=== PATIENT | female | born 1955 | race Hispanic/Latino ===

== ENCOUNTER 2021-11-12 19:31 | Emergency (ER) | payer OTHER ==
--- NOTE | 2021-11-12 21:27 | RAD REPORT ---
EXAM DESCRIPTION: CT - [id number] - 11/12/2021 9:16 pm CLINICAL HISTORY: Trauma, head and neck injury. fall, hit back of head and neck pain COMPARISON: No comparisons TECHNIQUE: Axial 5 mm thick images of the head were obtained. Axial 2 mm thick images of the cervical spine were obtained with sagittal and coronal reconstruction images generated and reviewed. All CT scans are performed using dose optimization technique as appropriate and may include automated exposure control or mA/KV adjustment according to patient size. FINDINGS: CT HEAD WITHOUT CONTRAST: No acute hemorrhage, hydrocephalus or extra-axial collection is identified.No areas of brain edema or midline shift. The paranasal sinuses and mastoids are clear.The calvarium is intact. CT CERVICAL SPINE WITHOUT CONTRAST: No fracture or subluxation.Mild lower cervical degenerative spondylosis.No prevertebral soft tissues swelling is identified. IMPRESSION: No acute intracranial or cervical spine findings.
--- NOTE | 2021-11-12 21:35 | ER ---
Nurse's Notes [facility] Name: Geena Islas Age: 66 yrs Sex: Female : 1955 Arrival Date: 11/12/2021 Time: 19:37 Bed 9 Private MD: Diagnosis: Unspecified injury of head, initial encounter Presentation: 11/12 19:57 Chief complaint: Patient states: I fell in the bathtub today - I hit the back of my ld1 head on the bathtub. Denies LOC. Not on blood thinners. "I want to make sure everything is okay, I am not in pain.". Coronavirus screen: At this time, the client does not indicate any symptoms associated with coronavirus-19. Ebola Screen: No symptoms or risks identified at this time. Initial Sepsis Screen: Does the patient meet any 2 criteria? No. Patient's initial sepsis screen is negative. Does the patient have a suspected source of infection? No. Patient's initial sepsis screen is negative. Risk Assessment: Do you want to hurt yourself or someone else? Patient reports no desire to harm self or others. Onset of symptoms was November 12, 2021 at 20:00. 19:57 Method Of Arrival: Ambulatory ld1 19:57 Acuity: ALPESH 3 ld1 Triage Assessment: 19:57 General: Appears in no apparent distress. comfortable, Behavior is calm, cooperative, ld1 appropriate for age. Pain: Denies pain. EENT: No signs and/or symptoms were reported regarding the EENT system. Neuro: Level of Consciousness is awake, alert, obeys commands, Oriented to person, place, time, situation. Cardiovascular: Capillary refill < 3 seconds Patient's skin is warm and dry. Respiratory: Airway is patent Respiratory effort is even, unlabored. GI: Abdomen is round non-distended. : No signs and/or symptoms were reported regarding the genitourinary system. Derm: No signs and/or symptoms reported regarding the dermatologic system. Musculoskeletal: No signs and/or symptoms reported regarding the musculoskeletal system. Historical: - Allergies: 19:57 Sulfa (Sulfonamide Antibiotics); ld1 - Home Meds: 19:57 omeprazole 20 mg Oral cpDR 1 cap once daily [Active]; carbidopa-levodopa 25-100 mg Oral ld1 tab 1 tab 3 times per day [Active]; - PMHx: 19:57 Balance problem; GERD; ld1 - PSHx: 19:57 None; ld1 - Immunization history:: Adult Immunizations up to date, Client reports having NOT received the Covid vaccine. - Social history:: Smoking status: Patient denies any tobacco usage or history of. Patient/guardian denies using alcohol. - Family history:: not pertinent. - Hospitalizations: : No recent hospitalization is reported. Vital Signs: 19:57 BP 143 / 79; Pulse 80; Resp 18; Temp 97.9(TE); Pulse Ox 98% on R/A; Weight 63.96 kg; ld1 Height 4 ft. 9 in. (144.78 cm); Pain 0/10; 19:57 Body Mass Index 30.51 (63.96 kg, 144.78 cm) ld1 ED Course: 19:37 Patient arrived in ED. jj6 20:00 Triage completed. ld1 20:00 Arm band placed on right wrist. ld1 20:17 Kenn Mary MD is Attending Physician. rn 21:18 CT Head C Spine In Process Unspecified. EDMS 22:10 Huma Flood RN is Primary Nurse. fv Administered Medications: No medications were administered Outcome: 21:35 Discharge ordered by . rn 22:11 Patient left the ED. fv Signatures: Dispatcher [employer] EDMS Kenn Mary MD MD rn Vergel De Dio, Flomeliza, RN RN Dotty Spears RN RN ld Idania Hoyt jj
--- NOTE | 2021-11-12 21:35 | EDPHYS ---
Physician Documentation [facility] Name: Geena Islas Age: 66 yrs Sex: Female : 1955 Arrival Date: 11/12/2021 Time: 19:37 Bed 9 Private MD: ED Physician Kenn Mary HPI: 11/12 20:53 This 66 yrs old Female presents to ER via Ambulatory with complaints of Fall rn Injury, Head Injury-Adult. 20:53 Details of fall: The patient fell from an upright position, while standing. Onset: The rn symptoms/episode began/occurred just prior to arrival. Associated injuries: The patient sustained injury to the head, neck injury. Severity of symptoms: At their worst the symptoms were mild, in the emergency department the symptoms are unchanged. The patient has not experienced similar symptoms in the past. The patient has not recently seen a physician. Pt reports fell backwards into tub, hit left back of head and neck, no LOC, no blood thinners, remembers all events, reports pain to neck and back of head. No other injuries, ambulatory.. Historical: - Allergies: 19:57 Sulfa (Sulfonamide Antibiotics); ld1 - Home Meds: 19:57 omeprazole 20 mg Oral cpDR 1 cap once daily [Active]; carbidopa-levodopa 25-100 mg Oral ld1 tab 1 tab 3 times per day [Active]; - PMHx: 19:57 Balance problem; GERD; ld1 - PSHx: 19:57 None; ld1 - Immunization history:: Adult Immunizations up to date, Client reports having NOT received the Covid vaccine. - Social history:: Smoking status: Patient denies any tobacco usage or history of. Patient/guardian denies using alcohol. - Family history:: not pertinent. - Hospitalizations: : No recent hospitalization is reported. ROS: 20:53 Constitutional: Negative for fever, chills, and weight loss, Eyes: Negative for injury, rn pain, redness, and discharge, ENT: Negative for injury, pain, and discharge, Neck: + neck pain Cardiovascular: Negative for chest pain, palpitations, and edema, Respiratory: Negative for shortness of breath, cough, wheezing, and pleuritic chest pain, Abdomen/GI: Negative for abdominal pain, nausea, vomiting, diarrhea, and constipation, Back: Negative for injury and pain, : Negative for injury, bleeding, discharge, and swelling, MS/Extremity: Negative for injury and deformity, Skin: Negative for injury, rash, and discoloration, Neuro: + headache Exam: 20:53 Constitutional: This is a well developed, well nourished patient who is awake, alert, rn and in no acute distress. Head/Face: Normocephalic, small superficial hematoma to left occiput, no laceration or bleeding, no depression Eyes: Pupils equal round and reactive to light, extra-ocular motions intact. Lids and lashes normal. Conjunctiva and sclera are non-icteric and not injected. Cornea within normal limits. Periorbital areas with no swelling, redness, or edema. ENT: No oral trauma Neck: Trachea midline, no masses palpated. Supple, full range of motion without nuchal rigidity, or vertebral point tenderness. No Meningismus. Cardiovascular: Regular rate and rhythm. No pulse deficits. Respiratory: No increased work of breathing, no retractions or nasal flaring. Abdomen/GI: Soft, non-tender Skin: Warm, dry MS/ Extremity: Pulses equal, no cyanosis. Neurovascular intact. Full, normal range of motion. Equal circumference. Neuro: Awake and alert, GCS 15, oriented to person, place, time, and situation. Cranial nerves II-XII grossly intact. Motor strength 5/5 in all extremities. Sensory grossly intact. Cerebellar exam normal. Normal gait. Vital Signs: 19:57 BP 143 / 79; Pulse 80; Resp 18; Temp 97.9(TE); Pulse Ox 98% on R/A; Weight 63.96 kg; ld1 Height 4 ft. 9 in. (144.78 cm); Pain 0/10; 19:57 Body Mass Index 30.51 (63.96 kg, 144.78 cm) ld1 MDM: 20:17 Patient medically screened. rn 21:34 Differential diagnosis: closed head injury, contusion, fracture, sprain, strain. Data rn reviewed: vital signs, nurses notes, radiologic studies, CT scan, and as a result, I will discharge patient. Counseling: I had a detailed discussion with the patient and/or guardian regarding: the historical points, exam findings, and any diagnostic results supporting the discharge/admit diagnosis, radiology results, the need for outpatient follow up, to return to the emergency department if symptoms worsen or persist or if there are any questions or concerns that arise at home. Special discussion: Based on the patient's history, exam and DX evaluation, there is no indication for emergent intervention or inpatient TX. It is understood by the patient/guardian that if the SXs persist or worsen they need to return immediately for re-evaluation. I discussed with the patient/guardian in detail that at this point there is no indication for admission to the hospital. It is understood, however, that if the symptoms persist or worsen the patient needs to return immediately for re-evaluation. 11/12 20:21 Order name: CT Head C Spine; Complete Time: 21:34 rn Administered Medications: No medications were administered Disposition Summary: 11/12/21 21:35 Discharge Ordered Location: Home rn Problem: new rn Symptoms: have improved rn Condition: Stable rn Diagnosis - Unspecified injury of head, initial encounter rn Followup: rn - With: Private Physician - When: As needed - Reason: Recheck today's complaints, Re-evaluation by your physician Discharge Instructions: - Discharge Summary Sheet rn - Head Injury, Adult rn - Hematoma rn Forms: - Medication Reconciliation Form rn - Thank You Letter rn - Antibiotic rn occupational - Prescription Opioid Use rn Signatures: Dispatcher [employer] Kenn Bowen MD MD rn Dibbern, Lauren RN RN ld1
[2021-11-12 23:40] VITALS: BP 143/79; TEMP 97.9; O2SAT 98
== END 2021-11-12 22:11 | disposition home or self-care (01) ==
LOC: ER 19:31
DX: S00.83XA Contusion of other part of head, initial encounter (principal); K21.9 Gastro-esophageal reflux disease without esophagitis; Z88.2 Allergy status to sulfonamides
CPT/HCPCS: 70450; 72125